=== PATIENT | male | born 1995 | race Caucasian/White ===

== ENCOUNTER → 2020-09-15 08:28 | Outpatient (BNVA) | payer OTHER, SELFPAY | PROVIDERS: Family Provider Family Medicine; Visit Provider Psychiatry & Neurology Psychiatry | DX: F41.9 Anxiety disorder, unspecified (principal) | CPT/HCPCS: 99204 ==

== ENCOUNTER 2022-08-30 10:46 | Outpatient (CLI) | payer OTHER, SELFPAY ==
--- NOTE | 2022-08-30 10:56 | MR_ITS ---
WS: [id number] MRI RIGHT KNEE NONCONTRAST TECHNIQUE: Axial PD, coronal PD fat sat, coronal PD, sagittal PD, and sagittal PD fat-sat images obta ined. CLINICAL INFORMATION: ACUTE MEDIAL MENISCUS TEAR COMPARISON: None. FINDINGS: Distal quadriceps and patella tendons are intact. Normal ACL and PCL. Normal medial and lateral menis cus. No acute appearing meniscal tears. Mild chondromalacia patella. Medial and lateral patellar reti nacula appear intact. No evidence of recent dislocation. Small amount of edema along the inferolatera l pole of the patella may be due to contusion. Recommend correlation with recent injury and area of p ain. Chondromalacia worse along lateral patella facet. Normal medial and lateral collateral ligaments. Normal popliteus. Normal popliteal fossa. MR/MR knee RT wo con* [id number] IMPRESSION: 1. Normal ACL and PCL. 2. Medial and lateral meniscus appear intact. 3. Mild chondromalacia patella advanced for patient this age. Small amount of edema along the inferior pole of the patella laterally. Patellar retinaculum ap pears intact. 4. Medial and lateral collateral ligaments appear intact. 5. No other acute findings.
== END 2022-08-30 10:47 | disposition home or self-care (01) ==
LOC: RAD 10:49
PROVIDERS: Visit Provider Orthopaedic Surgery
DX: S83.241A Other tear of medial meniscus, current injury, right knee, initial encounter (principal); X58.XXXA Exposure to other specified factors, initial encounter; M22.41 Chondromalacia patellae, right knee
CPT/HCPCS: 73721

== ENCOUNTER 2025-01-15 13:34 | Emergency (ER) | payer BC, MEDICAID, SELFPAY ==
[2025-01-15 13:35] VITALS: BMI 25.0
--- OUTSIDE RECORDS SUMMARY | 2025-01-15 13:39 | XMS_ITS | Encounter Summary ---
Author Organization [facility] Address [address] [place] [address] Care Team Providers Care Overedger Name Role Phone Roman Hernandez MD Primary Care Provider Un available Encounter Details Date Type Department Care Team (Late st Contact Info) Description 03/14/2014 Ancillary Orders [facility] Services [place] [address] [place] [address] Matthias Mooney MD [address] [facility] [address] [place] [address] Social History Tobacco Use Types Packs/Day Years Used Date Smoking Tobacco: Never Smokeless Tobacco: Never Alcohol Use Standard Drinks/Week Comments No 0 (1 standard drink = 0.6 oz pur e alcohol) Sex and Gender Information Value Date Recorded Sex Assigned at Not on file Legal Sex Male 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
--- OUTSIDE RECORDS SUMMARY | 2025-01-15 13:39 | XMS_ITS | Encounter Summary ---
Author Organization [facility] Address [address] [place] [address] Care Team Providers Care Marketing And Promotions Manager Name Role Phone Roman Hernandez MD Primary Care Provider Un available Encounter Details Date Type Department Care Team (Late st Contact Info) Description 03/14/2014 Ancillary Orders [facility] Laboratory Services [place] [address] [place] [address] Matthias Mooney MD [address] [facility] [address] [place] [address] Social History Tobacco Use Types Packs/Day Years Used Date Smoking Tobacco: Never Smokeless Tobacco: Never Alcohol Use Standard Drinks/Week Comments No 0 (1 standard drink = 0.6 oz pur e alcohol) Sex and Gender Information Value Date Recorded Sex Assigned at Not on file 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
--- OUTSIDE RECORDS SUMMARY | 2025-01-15 13:39 | XMS_ITS | Encounter Summary ---
Author Organization [facility] Address [address] [place] [address] Care Team Providers Care Manager Travel Name Role Phone Roman Hernandez MD Primary Care Provider Un available Encounter Details Date Type Department Care Team (Late st Contact Info) Description 03/14/2014 Ancillary Orders [facility] Laboratory Services [place] [address] [place] [address] Matthias Mooney MD [address] [facility] [address] [place] [address] Social History Tobacco Use Types Packs/Day Years Used Date Smoking Tobacco: Never Smokeless Tobacco: Never Alcohol Use Standard Drinks/Week Comments No 0 (1 standard drink = 0.6 oz pur e alcohol) Sex and Gender Information Value Date Recorded Sex Assigned at Not on file 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
--- OUTSIDE RECORDS SUMMARY | 2025-01-15 13:40 | XMS_ITS | Encounter Summary ---
Author Organization [facility] Address [address] [place] [address] Care Team Providers Care Traveling Missionary Name Role Phone Roman Hernandez MD Primary Care Provider Un available Encounter Details Date Type Department Care Team (Late st Contact Info) Description 04/11/2014 Ancillary Orders [facility] Laboratory Services [place] [address] [place] [address] Matthias Mooney MD [address] [facility] [address] [place] [address] Social History Tobacco Use Types Packs/Day Years Used Date Smoking Tobacco: Never Smokeless Tobacco: Never Alcohol Use Standard Drinks/Week Comments No 0 (1 standard drink = 0.6 oz pur e alcohol) Sex and Gender Information Value Date Recorded Sex Assigned at Not on file 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
--- OUTSIDE RECORDS SUMMARY | 2025-01-15 13:40 | XMS_ITS | Encounter Summary ---
Author Organization [facility] Address [address] [place] [address] Care Team Providers Care Scheduling Specialist Name Role Phone Roman Hernandez MD Primary Care Provider Un available Encounter Details Date Type Department Care Team (Latest Contact Info) Description 08/03/2003 Outpatient Historical [facility] [address] [place] [address] Roman Hernandez MD NO ADDRESS ON FILE ACUTE PHARYNGITIS (Primary Dx); BACKACHE NOS Social History Tobacco Use Types Packs/Day Years Used Date Smoking Tobacco: Never Assessed Sex and Gender Information Value Date Recorded Sex Assigned at Not on file 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
--- OUTSIDE RECORDS SUMMARY | 2025-01-15 13:40 | XMS_ITS | Encounter Summary ---
Author Organization [facility] Address [address] [place] [address] Care Team Providers Care Electrician Technician Name Role Phone Roman Hernandez MD Primary Care Provider Un available Encounter Details Date Type Department Care Team (Latest Contact Info) Description 12/19/2003 Outpatient Historical [facility] [address] [place] [phone] Roman Hernandez MD NO ADDRESS ON FILE Routine child health exam (Primary Dx) Social History Tobacco Use Types Packs/Day Years Used Date Smoking Tobacco: Never Assessed Sex and Gender Information Value Date Recorded Sex Assigned at Not on file 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
--- OUTSIDE RECORDS SUMMARY | 2025-01-15 13:40 | XMS_ITS | Encounter Summary ---
Author Organization [facility] Address [address] [place] [address] Care Team Providers Care Modeling Analyst Name Role Phone Roman Hernandez MD Primary Care Provider Un available Encounter Details Date Type Department Care Team (Latest Contact Info) Description 12/29/2001 Outpatient Historical [facility] [address] [place] [phone] Roman Hernadnez MD NO ADDRESS ON FILE Routine child health exam (Primary Dx) Social History Tobacco Use Types Packs/Day Years Used Date Smoking Tobacco: Never Assessed Sex and Gender Information Value Date Recorded Sex Assigned at Not on file 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
--- OUTSIDE RECORDS SUMMARY | 2025-01-15 13:40 | XMS_ITS | Encounter Summary ---
Author Organization [facility] Address [address] [place] [address] Care Team Providers Care Group Home Counselor Name Role Phone Roman Hernandez MD Primary Care Provider Un available Encounter Details Date Type Department Care Team (Latest Contact Info) Description 02/06/1998 Outpatient Historical [facility] [place] [address] [place] [phone] Roman Hernandez MD NO ADDRESS ON FILE Vaccine for varicella (Primary Dx); Vaccine for poliomyelitis Social History Tobacco Use Types Packs/Day Years Used Date Smoking Tobacco: Never Assessed Sex and Gender Information Value Date Recorded Sex Assigned at Not on file 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
--- OUTSIDE RECORDS SUMMARY | 2025-01-15 13:40 | XMS_ITS | Encounter Summary ---
Author Organization [facility] Address [address] [place] [address] Care Team Providers Care Railroad Detective Name Role Phone Roman Hernandez MD Primary Care Provider Un available Encounter Details Date Type Department Care Team (Latest Contact Info) Description 08/20/2003 Outpatient Historical [facility] [place] [address] [place] [phone] Shamir Hair MD NO ADDRESS ON FILE STREP SORE THROAT (Primary Dx) Social History Tobacco Use Types Packs/Day Years Used Date Smoking Tobacco: Never Assessed Sex and Gender Information Value Date Recorded Sex Assigned at Not on file 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
--- OUTSIDE RECORDS SUMMARY | 2025-01-15 13:40 | XMS_ITS | Clinical Summary ---
Author Organization [facility] Address [address] 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 Active Active Problems Problem Noted Date Diagnosed Date History of concussion 01/25/2015 FH: hypercholesterolemia 10/25/2014 Septic arthritis of knee, left 03/06/2014 S/P ACL surgery 03/02/2014 Overview (03/06/2014): Left knee Bone - patellar tendon - bone autograft on 02/10/2014 by Dimas Personal history of allergy to penicillin 2007 Immunizations Immunization Administration Dates Next Due (ADACEL/BOOSTRIX)(10 YR UP) TDAP VACCINE, 0.5ML, IM 12/18/2009 (GARDASIL)(9-45 YRS) HUMAN PAPILLOMAVIRUS VACCINE, TYPES 6, 11, 16, 18, QUADRIVALENT (4VHPV), 3 DOSE, IM 04/14/2012,11/08/2011,06/18/2011 (HAVRIX/VAQTA)(12 MO-18 YRS) HEPATITIS A VACCINE 0.5 ML PED/ADOL 2 DOSE, IM 12/18/2009,01/10/2009 (M-M-R II/PRIORIX)(12 MO UP) MEASLES, MUMPS AND RUBELLA VIRUS VACCINE, 0.5 ML IM/SUBCUT 12/29/2001,05/11/1998,05/05/1998 (VARIVAX)(12 MOS UP)VARICELL A VIRUS VACCINE (PF) 0.5 ML, SUB CUT 12/12/2006,02/06/1998 Dt Dtp Dtap Vaccine 12/29/2001, 8,1997,06/10,1997 HIB, Unspecified Formulation 05/11/1998, 1997,1997,04/12 Hepatitis B Vaccine 1997,1997,1996 INFLUENZA VACCINE QUADRIVALE NT 3 YR UP PF IM 03/07/2015,04/28/2014 IPV/OPV 12/29/2001, 8,1997,04/12 Influenza Seasonal Unspecifi ed Formulation IM 03/25/2008,03/25/2007,03/25/2006,03/07 Meningococcal A Conjugate Vaccine IM 12/18/2009 Family History Medical History Relation Name Comments High Cholesterol Father Hypertension Father Healthy Mother Relation Name Status Comments Father Alive Mother Alive Social History Tobacco Use Types Packs/Day Years Used Date Smoking Tobacco: Never Smokeless Tobacco: Never Alcohol Use Standard Drinks/Week Comments No 0 (1 standard drink = 0.6 oz pur e alcohol) Sex and Gender Information Value Date Recorded Sex Assigned at Not on file 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 Gender Identity Not on file Sexual Orientation Not on file Occupation Industry Job Start Date Job End Date Not on file Not on file Not on file Not on file Not on file Not on file Not on file Not on file Last Filed Vital Signs Vital Sign Reading Time Taken Comments Blood Pressure 125/75 03/07/2015 1:28 PM CDT Pulse 68 03/07/2015 1:28 PM CDT Temperature 36.6 C (97.9 F) 01/25/2015 9:13 AM CDT Respiratory Rate 15 03/07/2015 1:28 PM CDT Oxygen Saturation 100% 01/25/2015 9:13 AM CDT Inhaled Oxygen Concentration - - Weight 79.6 kg (175 lb 8 oz) 03/07/2015 1:28 PM CDT Height 165.1 cm (5' 5 ) 03/07/2015 1:28 PM CDT Body Mass Index 29.2 03/07/2015 1:28 PM CDT Plan of Treatment Health Maintenance Due Date Last Done Comments DTAP/TDAP/TD VACCINES (7 - T d or Tdap) 12/19/2019 12/18/2009, 12/29/2001, 05/05/1998, Additional history exists INFLUENZA VACCINE (#1) 2024 , 04/28/2014, 03/25/2008, Additional history exists HEPATITIS B VACCINES Completed 1997, 1997, 1997 HPV VACCINES Completed 04/14/2012, 10/24, 06/18/2011 Medical Devices Implanted Type Area Nailing Machine Operator Device Identifier Shelf Expiration Date Model / Serial / Lot Screw Biocomp Intrfrnc 7x23mm Ar-1370c - [id number] Implanted:Qty: 1 on 02/10/2014 by Dewayne Cochran MD at [facility] Screw Left: Knee [employer] 11/23/2015 AR-1370C / / [id number] Screw Biocomp Intrfrnc 8x23mm Ar-1380c - [id number] Implanted:Qty: 1 on 02/10/2014 by Dewayne Cochran MD at [facility] Screw Left: Knee [employer] 11/23/2015 AR-1380C / / [id number] [place] [address] [place] [address] [facility] Advance Directives For more information, please contact: [phone] * Full Code (Latest Code Status on File) Date Activated Date Inactivated Comments 03/11/2014 12:20 PM 03/12/2014 6:42 PM * Full Code Date Activated Date Inactivated Comments 03/06/2014 1:01 PM 03/08/2014 6:03 PM * Full Code Date Activated Date Inactivated Comments 02/10/2014 11:23 AM 02/10/2014 6:49 PM Care Teams Airplane Tester Relationship Specialty Start Date End Date Roman Hernandez MD PCP - General 06/14/07
--- OUTSIDE RECORDS SUMMARY | 2025-01-15 13:40 | XMS_ITS | Encounter Summary ---
Author Organization [facility] Address [address] [place] [address] Care Team Providers Care Weekend Anchor Name Role Phone Roman Hernandez MD Primary Care Provider Un available Encounter Details Date Type Department Care Team (Latest Contact Info) Description 03/22/2004 Outpatient Historical [facility] 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
--- OUTSIDE RECORDS SUMMARY | 2025-01-15 13:40 | XMS_ITS | Encounter Summary ---
Author Organization [facility] Address [address] [place] [address] Care Team Providers Care Cpht Name Role Phone Roman Hernandez MD Primary Care Provider Un available Encounter Details Date Type Department Care Team (Latest Contact Info) Description 1997 Outpatient Historical [facility] [address] [place] [phone] Roman Hernandez MD NO ADDRESS ON FILE Other and unspecified noninfectious gastroenteritis and colitis(558.9) (Primary Dx); Unspecified suppurative otitis media Social History Tobacco Use Types Packs/Day Years Used Date Smoking Tobacco: Never Assessed Sex and Gender Information Value Date Recorded Sex Assigned at Not on file Legal Sex Male 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
--- OUTSIDE RECORDS SUMMARY | 2025-01-15 13:40 | XMS_ITS | Encounter Summary ---
Author Organization [facility] Address [address] [place] [address] Care Team Providers Care Expense Clerk Name Role Phone Roman Hernandez MD Primary Care Provider Un available Encounter Details Date Type Department Care Team (Latest Contact Info) Description 06/30/2000 Outpatient Historical [facility] Ophthalmology 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
--- OUTSIDE RECORDS SUMMARY | 2025-01-15 13:40 | XMS_ITS | Encounter Summary ---
Author Organization [facility] Address [address] [place] [address] Care Team Providers Care Publishing Director Name Role Phone Roman Hernandez MD Primary Care Provider Un available Encounter Details Date Type Department Care Team (Latest Contact Info) Description 07/17/2003 Outpatient Historical [facility] [place] [address] STREP SORE THROAT (Primary Dx) Social History Tobacco Use Types Packs/Day Years Used Date Smoking Tobacco: Never Assessed Sex and Gender Information Value Date Recorded Sex Assigned at Not on file Legal 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
--- OUTSIDE RECORDS SUMMARY | 2025-01-15 13:40 | XMS_ITS | Encounter Summary ---
Author Organization [facility] Address [address] [place] [address] Care Team Providers Care Inhalation Therapist Name Role Phone Roman Hernandez MD Primary Care Provider Un available Encounter Details Date Type Department Care Team (Latest Contact Info) Description 10/25/2004 Outpatient Historical [facility] Ophthalmology [address] [place] 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
--- OUTSIDE RECORDS SUMMARY | 2025-01-15 13:40 | XMS_ITS | Encounter Summary ---
Author Organization [facility] Address [address] [place] [address] Care Team Providers Care Pond Sawyer Name Role Phone Roman Hernandez MD Primary Care Provider Un available Encounter Details Date Type Department Care Team (Latest Contact Info) Description 08/24/1999 Outpatient Historical [facility] [address] [place] [phone] Roman Hernandez MD NO ADDRESS ON FILE Unspecified suppurative otitis media (Primary Dx); Acute pharyngitis Social History Tobacco Use Types Packs/Day Years Used Date Smoking Tobacco: Never Assessed Sex and Gender Information Value Date Recorded Sex Assigned at Not on file 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
--- OUTSIDE RECORDS SUMMARY | 2025-01-15 13:40 | XMS_ITS | Encounter Summary ---
Author Organization [facility] Address [address] [place] [address] Care Team Providers Care Chemistry Lab Instructor Name Role Phone Roman Hernandez MD Primary Care Provider Un available Encounter Details Date Type Department Care Team (Late st Contact Info) Description 04/04/2014 Ancillary Orders [facility] Laboratory Services [place] [address] [place] [address] Matthias Mooney MD [address] [facility] [address] [place] [address] Social History Tobacco Use Types Packs/Day Years Used Date Smoking Tobacco: Never Smokeless Tobacco: Never Alcohol Use Standard Drinks/Week Comments No 0 (1 standard drink = 0.6 oz pur e alcohol) Sex and Gender Information Value Date Recorded Sex Assigned at Not on file 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
--- OUTSIDE RECORDS SUMMARY | 2025-01-15 13:40 | XMS_ITS | Encounter Summary ---
Author Organization [facility] Address [address] [place] [address] Care Team Providers Care Supervisor Hot Dip Tinning Name Role Phone Roman Hernandez MD Primary Care Provider Un available Encounter Details Date Type Department Care Team (Late st Contact Info) Description 03/28/2014 Ancillary Orders [facility] Laboratory Services [place] [address] [place] [address] Matthias Mooney MD [address] [facility] [address] [place] [address] Social History Tobacco Use Types Packs/Day Years Used Date Smoking Tobacco: Never Smokeless Tobacco: Never Alcohol Use Standard Drinks/Week Comments No 0 (1 standard drink = 0.6 oz pur e alcohol) Sex and Gender Information Value Date Recorded Sex Assigned at Not on file 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
--- OUTSIDE RECORDS SUMMARY | 2025-01-15 13:40 | XMS_ITS | Clinical Summary ---
Author Organization [facility] Address [address] [facility] Attn: [place] [address] Care Team Providers Care Prototype Machinist Name Role Phone Unavailable Primary Care Provider Unavailabl e Allergies Active Allergy Reactions Criticality Noted Date Comments Hydromorphone (Bulk) Other (See Comments) 03/06 resp rate drops Penicillin G Hives High 05/21/2008 Sulfa (Sulfonamide Antibiotics) Hives High 07/15/2010 Active Problems Problem Noted Date Diagnosed Date History of concussion 01/25/2015 FH: hypercholesterolemia 10/25/2014 Septic arthritis of knee, left 03/06/2014 S/P ACL surgery 03/02/2014 Overview (09/21/2020): Left knee Bone - patellar tendon - [...] at Not on file 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 Gender Identity Not on file Sexual Orientation Not on file Last Filed Vital Signs Vital Sign Reading Time Taken Comments Blood Pressure 125/75 03/07/2015 1:28 PM CDT Pulse 68 03/07/2015 1:28 PM CDT Temperature 36.6 C (97.9 F) 01/25/2015 9:13 AM CDT Respiratory Rate 15 03/07/2015 1:28 PM CDT Oxygen Saturation - - Inhaled Oxygen Concentration - - Weight 79.6 [...] 10/24, 06/18/2011 Medical Devices Implanted Type Area Certified Medicine Aide Device Identifier Shelf Expiration Date Model / Serial / Lot Screw Biocomp Intrfrnc 7x23mm Ar-1370c - [id number] Implanted:Qty: 1 on 02/10/2014 by Dewayne Cochran MD Screw Left: Knee [employer] 11/23/2015 AR-1370C / / [id number] Screw Biocomp Intrfrnc 8x23mm Ar-1380c - [id number] Implanted:Qty: 1 on 02/10/2014 by Dewayne Cochran MD Screw Left: Knee [employer] 11/23/2015 AR-1380C / / [id number]
--- OUTSIDE RECORDS SUMMARY | 2025-01-15 13:40 | XMS_ITS | Encounter Summary ---
Author Organization [facility] Address [address] [place] [address] Care Team Providers Care Electrician Machine Shop Name Role Phone Roman Hernandez MD Primary Care Provider Un available Encounter Details Date Type Department Care Team (Late st Contact Info) Description 03/21/2014 Ancillary Orders [facility] Laboratory Services [place] [address] [place] [address] Matthias Mooney MD [address] [facility] [address] [place] [address] Social History Tobacco Use Types Packs/Day Years Used Date Smoking Tobacco: Never Smokeless Tobacco: Never Alcohol Use Standard Drinks/Week Comments No 0 (1 standard drink = 0.6 oz pur e alcohol) Sex and Gender Information Value Date Recorded Sex Assigned at Not on file 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
--- OUTSIDE RECORDS SUMMARY | 2025-01-15 13:40 | XMS_ITS | Encounter Summary ---
Author Organization [facility] Address [address] [place] [address] Care Team Providers Care Data Analysis Manager Name Role Phone Roman Hernandez MD Primary Care Provider Un available Encounter Details Date Type Department Care Team (Late st Contact Info) Description 03/21/2014 Ancillary Orders [facility] Laboratory Services [place] [address] [place] [address] Matthias Mooney MD [address] [facility] [address] [place] [address] Social History Tobacco Use Types Packs/Day Years Used Date Smoking Tobacco: Never Smokeless Tobacco: Never Alcohol Use Standard Drinks/Week Comments No 0 (1 standard drink = 0.6 oz pur e alcohol) Sex and Gender Information Value Date Recorded Sex Assigned at Not on file Legal Sex Male 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
--- OUTSIDE RECORDS SUMMARY | 2025-01-15 13:40 | XMS_ITS | Encounter Summary ---
Author Organization [facility] Address [address] [place] [address] Care Team Providers Care Audit Officer Name Role Phone Roman Hernandez MD Primary Care Provider Un available Encounter Details Date Type Department Care Team (Latest Contact Info) Description 05/29/2001 Outpatient Historical [facility] acks [address] [place] [phone] Roman Hernandez MD NO ADDRESS ON FILE ACUTE URI NOS (Primary Dx) Social History Tobacco Use Types Packs/Day Years Used Date Smoking Tobacco: Never Assessed Sex and Gender Information Value Date Recorded Sex Assigned at Not on file 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
--- OUTSIDE RECORDS SUMMARY | 2025-01-15 13:40 | XMS_ITS | Encounter Summary ---
Author Organization [facility] Address [address] [place] [address] Care Team Providers Care Spinner Concrete Pipe Name Role Phone Roman Hernandez MD Primary Care Provider Un available Encounter Details Date Type Department Care Team (Latest Contact Info) Description 10/12/2006 Outpatient Historical [facility] Ur[facility] Care-[facility] [place] [address] [place] [address] Renato Castro MD NO ADDRESS ON FILE Abdominal Pain, Unspecified Site (Primary Dx) Social History Tobacco Use Types Packs/Day Years Used Date Smoking Tobacco: Never Assessed Sex and Gender Information Value Date Recorded Sex Assigned at Not on file 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
--- OUTSIDE RECORDS SUMMARY | 2025-01-15 13:40 | XMS_ITS | Encounter Summary ---
Author Organization [facility] Address [address] [place] [address] Care Team Providers Care Technical Aide Name Role Phone Roman Hernandez MD Primary Care Provider Un available Encounter Details Date Type Department Care Team (Latest Contact Info) Description 05/05/1998 Outpatient Historical [facility] Family Medicine-[facility] [address] [place] [phone] Roman Hernandez MD NO ADDRESS ON FILE Routine child health exam (Primary Dx); Need for prophylactic vaccination and inoculation against other specified disease Social History Tobacco Use Types Packs/Day Years Used Date Smoking Tobacco: Never Assessed Sex and Gender Information Value Date Recorded Sex Assigned at Not on file Legal Sex Male 5:36 AM QUALITY ASSURANCE Gender Identity Not on file Sexual Orientation Not on file documented as of this encounter Plan of Treatment Not on file documented as of this encounter Visit Diagnoses Diagnosis Routine child health exam- Primary Routine or child health check Need for prophylactic vaccination and inoculation against other specified disease documented in this encounter Care Teams Technical Aide Relationship Specialty Start Date End Date Roman Hernandez MD PCP - General 06/14/07 documented as of this encounter
--- OUTSIDE RECORDS SUMMARY | 2025-01-15 13:40 | XMS_ITS | Encounter Summary ---
Author Organization [facility] Address [address] [place] [address] Care Team Providers Care Sulfuric Acid Plant Supervisor Name Role Phone Roman Hernandez MD Primary Care Provider Un available Encounter Details Date Type Department Care Team (Latest Contact Info) Description 01/14/1998 Outpatient Historical [facility] Ur[facility] Care-[facility] [place] [address] [place] [phone] Renato Castro MD NO ADDRESS ON FILE Acute nonsup otitis media (Primary Dx) Social History Tobacco Use Types Packs/Day Years Used Date Smoking Tobacco: Never Assessed Sex and Gender Information Value Date Recorded Sex Assigned at Not on file 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
--- OUTSIDE RECORDS SUMMARY | 2025-01-15 13:40 | XMS_ITS | Encounter Summary ---
Author Organization [facility] Address [address] [place] [address] Care Team Providers Care Bill Peddler Name Role Phone Roman Hernandez MD Primary Care Provider Un available Encounter Details Date Type Department Care Team (Late st Contact Info) Description 03/28/2014 Ancillary Orders [facility] Laboratory Services [place] [address] [place] [address] Matthias Mooney MD [address] [facility] [address] [place] [address] Social History Tobacco Use Types Packs/Day Years Used Date Smoking Tobacco: Never Smokeless Tobacco: Never Alcohol Use Standard Drinks/Week Comments No 0 (1 standard drink = 0.6 oz pur e alcohol) Sex and Gender Information Value Date Recorded Sex Assigned at Not on file Legal Sex Male 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
--- OUTSIDE RECORDS SUMMARY | 2025-01-15 13:40 | XMS_ITS | Encounter Summary ---
Author Organization [facility] Address [address] [place] [address] Care Team Providers Care Seat Covers Trimmer Name Role Phone Roman Hernandez MD Primary Care Provider Un available Encounter Details Date Type Department Care Team (Latest Contact Info) Description 09/02/2006 Outpatient Historical [facility] [address] [place] [phone] Roman Hernandez MD NO ADDRESS ON FILE Pain in Joint, Site Unspecified (Primary Dx) Social History Tobacco Use Types Packs/Day Years Used Date Smoking Tobacco: Never Assessed Sex and Gender Information Value Date Recorded Sex Assigned at Not on file Legal Sex Male 5:36 AM CAN CRIMPER Gender Identity Not on file Sexual Orientation Not on file documented as of this encounter Plan of Treatment Not on file documented as of this encounter Visit Diagnoses Diagnosis Pain in joint, site unspecified- Primary documented in this encounter Care Teams Seat Covers Trimmer Relationship Specialty Start Date End Date Roman Hernandez MD PCP - General 06/14/07 documented as of this encounter
--- OUTSIDE RECORDS SUMMARY | 2025-01-15 13:40 | XMS_ITS | Encounter Summary ---
Author Organization [facility] Address [address] [place] [address] Care Team Providers Care Diamond Grinder Name Role Phone Roman Hernandez MD Primary Care Provider Un available Encounter Details Date Type Department Care Team (Latest Contact Info) Description 02/20/1998 Outpatient Historical [facility] Family Medicine-[facility] [address] [place] [phone] Roman Hernandez MD NO ADDRESS ON FILE Unspecified suppurative otitis media (Primary Dx); Acute bronchiolitis due to other infectious organisms Social History Tobacco Use Types Packs/Day Years Used Date Smoking Tobacco: Never Assessed Sex and Gender Information Value Date Recorded Sex Assigned at Not on file Legal 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
--- OUTSIDE RECORDS SUMMARY | 2025-01-15 13:40 | XMS_ITS | Encounter Summary ---
Author Organization [facility] Address [address] [place] [address] Care Team Providers Care Embedded Case Manager Name Role Phone Roman Hernandez MD Primary Care Provider Un available Encounter Details Date Type Department Care Team (Latest Contact Info) Description 12/17/2006 Outpatient Historical 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
--- OUTSIDE RECORDS SUMMARY | 2025-01-15 13:40 | XMS_ITS | Encounter Summary ---
Author Organization [facility] Address [address] [place] [address] Care Team Providers Care Production Engineer Track Name Role Phone Roman Hernandez MD Primary Care Provider Un available Encounter Details Date Type Department Care Team (Latest Contact Info) Description 1997 Outpatient Historical [facility] Medicine-[facility] [address] [place] [phone] Roman Hernandez MD NO ADDRESS ON FILE Acute upper respiratory infections of unspecified site (Primary Dx) Social History Tobacco Use Types Packs/Day Years Used Date Smoking Tobacco: Never Assessed Sex and Gender Information Value Date Recorded Sex Assigned at Not on file Legal Sex Male 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
--- OUTSIDE RECORDS SUMMARY | 2025-01-15 13:40 | XMS_ITS | Encounter Summary ---
Author Organization [facility] Address [address] [place] [address] Care Team Providers Care Precision Dancer Name Role Phone Roman Hernandez MD Primary Care Provider Un available Encounter Details Date Type Department Care Team (Latest Contact Info) Description 09/14/2004 Outpatient Historical [facility] [address] [place] [phone] Roman Hernandez MD NO ADDRESS ON FILE CONTUSION OF ELBOW (Primary Dx) Social History Tobacco Use Types Packs/Day Years Used Date Smoking Tobacco: Never Assessed Sex and Gender Information Value Date Recorded Sex Assigned at Not on file Legal Sex Male 5:36 AM REFINERY OPERATOR Gender Identity Not on file Sexual Orientation Not on file documented as of this encounter Plan of Treatment Not on file documented as of this encounter Visit Diagnoses Diagnosis Contusion of elbow- Primary documented in this encounter Care Teams Precision Dancer Relationship Specialty Start Date End Date Roman Hernandez MD PCP - General 06/14/07 documented as of this encounter
--- OUTSIDE RECORDS SUMMARY | 2025-01-15 13:40 | XMS_ITS | Encounter Summary ---
Author Organization [facility] Address [address] [place] [address] Care Team Providers Care Dough Molder Name Role Phone Roman Hernandez MD Primary Care Provider Un available Encounter Details Date Type Department Care Team (Latest Contact Info) Description 05/01/2000 Outpatient Historical [facility] [address] [place] [address] Heber Dickerson MD [address] [place] [address] Hypermetropia (Primary Dx) Social History Tobacco Use Types Packs/Day Years Used Date Smoking Tobacco: Never Assessed Sex and Gender Information Value Date Recorded Sex Assigned at Not on file Legal Sex Male 5:36 AM SERVICE ORDER CLERK Gender Identity Not on file Sexual Orientation Not on file documented as of this encounter Plan of Treatment Not on file documented as of this encounter Visit Diagnoses Diagnosis Hypermetropia- Primary documented in this encounter Care Teams Dough Molder Relationship Specialty Start Date End Date Roman Hernandez MD PCP - General 06/14/07 documented as of this encounter
--- OUTSIDE RECORDS SUMMARY | 2025-01-15 13:40 | XMS_ITS | Encounter Summary ---
Author Organization [facility] Address [address] [place] [address] Care Team Providers Care Communication Coordinator Name Role Phone Roman Hernandez MD Primary Care Provider Un available Encounter Details Date Type Department Care Team (Latest Contact Info) Description 08/10/1999 Outpatient Historical 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
--- OUTSIDE RECORDS SUMMARY | 2025-01-15 13:40 | XMS_ITS | Encounter Summary ---
Author Organization [facility] Address [address] [place] [address] Care Team Providers Care Car Changer Name Role Phone Roman Hernandez MD Primary Care Provider Un available Encounter Details Date Type Department Care Team (Late st Contact Info) Description 04/11/2014 Ancillary Orders [facility] Laboratory Services [place] [address] [place] [address] Matthias Mooney MD [address] [facility] [address] [place] [address] Social History Tobacco Use Types Packs/Day Years Used Date Smoking Tobacco: Never Smokeless Tobacco: Never Alcohol Use Standard Drinks/Week Comments No 0 (1 standard drink = 0.6 oz pur e alcohol) Sex and Gender Information Value Date Recorded Sex Assigned at Not on file Legal Sex Male 5:36 AM CONE TENDER Gender Identity Not on file Sexual Orientation [...] on filedocumented in this encounter Care Teams Car Changer Relationship Specialty Start Date End Date Roman Hernandez MD PCP - General 06/14/07 documented as of this encounter
--- OUTSIDE RECORDS SUMMARY | 2025-01-15 13:40 | XMS_ITS | Encounter Summary ---
Author Organization [facility] Address [address] [place] [address] Care Team Providers Care Painter Name Role Phone Roman Hernandez MD Primary Care Provider Un available Encounter Details Date Type Department Care Team (Latest Contact Info) Description 1997 Outpatient Historical [facility] [place] [address] [place] [phone] Roman Hernandez MD NO ADDRESS ON FILE Need for prophylactic vaccination with combined nghbjcbqje-tnotvjr-by rtussis (DTP) vaccine (Primary Dx); Need for prophylactic vaccination against Hemophilus influenza type B (Hib); Vaccine for leishmaniasis Social History Tobacco Use Types Packs/Day Years Used Date Smoking Tobacco: Never Assessed Sex and Gender Information Value Date Recorded Sex Assigned at Not on file Legal Sex Male 5:36 AM REFINERY OPERATOR HELPER CRUDE UNIT Gender Identity Not on file Sexual Orientation Not on file documented as of this encounter Plan of Treatment Not on file documented as of this encounter Visit Diagnoses Diagnosis Need for prophylactic vaccination with combined [id number] (DTP) vaccine- Primary Need for prophylactic vaccination against Hemophilus influenza type B (Hib) Vaccine for leishmaniasis Need for prophylactic vaccination and inoculation against Leishmaniasis documented in this encounter Care Teams Painter Relationship Specialty Start Date End Date Roman Hernandez MD PCP - General 06/14/07 documented as of this encounter
--- OUTSIDE RECORDS SUMMARY | 2025-01-15 13:40 | XMS_ITS | Encounter Summary ---
Author Organization [facility] Address [address] [place] [address] Care Team Providers Care Factory Maintenance Manager Name Role Phone Roman Hernandez MD Primary Care Provider Un available Encounter Details Date Type Department Care Team (Latest Contact Info) Description 06/30/1998 Outpatient Historical [facility] Medicine-[facility] [address] [place] [phone] Roman Hernandez MD NO ADDRESS ON FILE Intracranial injury of other and unspecified nature, without mention of open intracranial wound, unspecified state of consciousness (Primary Dx) Social History Tobacco Use Types Packs/Day Years Used Date Smoking Tobacco: Never Assessed Sex and Gender Information Value Date Recorded Sex Assigned at Not on file Legal Sex Male 5:36 AM CHIEF INTERNAL AUDITOR Gender Identity Not on file Sexual Orientation Not on file documented as of this encounter Plan of Treatment Not on file documented as of this encounter Visit Diagnoses Diagnosis Intracranial injury of other and unspecified nature, without mention of open intracranial wound, unspecified state of consciousness- Primary documented in this encounter Care Teams Factory Maintenance Manager Relationship Specialty Start Date End Date Roman Hernandez MD PCP - General 06/14/07 documented as of this encounter
--- OUTSIDE RECORDS SUMMARY | 2025-01-15 13:40 | XMS_ITS | Encounter Summary ---
Author Organization [facility] Address [address] [place] [address] Care Team Providers Care Legal Aide Name Role Phone Roman Hernandez MD Primary Care Provider Un available Encounter Details Date Type Department Care Team (Latest Contact Info) Description 1999 Outpatient Historical [facility] [address] [place] [phone] Roman Hernandez MD NO ADDRESS ON FILE Routine child health exam (Primary Dx) Social History Tobacco Use Types Packs/Day Years Used Date Smoking Tobacco: Never Assessed Sex and Gender Information Value Date Recorded Sex Assigned at Not on file Legal Sex Male 5:36 AM SERVICER TRAVEL TRAILERS Gender Identity Not on file Sexual Orientation Not on file documented as of this encounter Plan of Treatment Not on file documented as of this encounter Visit Diagnoses Diagnosis Routine child health exam- Primary Routine infant or child health check documented in this encounter Care Teams Legal Aide Relationship Specialty Start Date End Date Roman Hernandez MD PCP - General 06/14/07 documented as of this encounter
--- OUTSIDE RECORDS SUMMARY | 2025-01-15 13:40 | XMS_ITS | Encounter Summary ---
Author Organization [facility] Address [address] [place] [address] Care Team Providers Care Service Order Dispatcher Name Role Phone Roman Hernandez MD Primary Care Provider Un available Encounter Details Date Type Department Care Team (Latest Contact Info) Description 07/03/1998 Outpatient Historical [facility] Family Medicine-[facility] [address] [place] [phone] Pro Kathleen MD NO ADDRESS ON FILE Unspecified suppurative otitis media (Primary Dx) Social History Tobacco Use Types Packs/Day Years Used Date Smoking Tobacco: Never Assessed Sex and Gender Information Value Date Recorded Sex Assigned at Not on file Legal Sex Male 5:36 AM LOCKSTITCH LINING SETTER Gender Identity Not on file Sexual Orientation Not on file documented as of this encounter Plan of Treatment Not on file documented as of this encounter Visit Diagnoses Diagnosis Unspecified suppurative otitis media- Primary documented in this encounter Care Teams Service Order Dispatcher Relationship Specialty Start Date End Date Roman Hernandez MD PCP - General 06/14/07 documented as of this encounter
--- OUTSIDE RECORDS SUMMARY | 2025-01-15 13:40 | XMS_ITS | Encounter Summary ---
Author Organization [facility] Address [address] [place] [address] Care Team Providers Care Industrial Illuminating Engineer Name Role Phone Roman Hernandez MD Primary Care Provider Un available Encounter Details Date Type Department Care Team (Latest Contact Info) Description 12/13/2005 Outpatient Historical [facility] [address] [place] [phone] Roman Hernandez MD NO ADDRESS ON FILE Unspecified Backache (Primary Dx); Unspecified Otalgia Social History Tobacco Use Types Packs/Day Years Used Date Smoking Tobacco: Never Assessed Sex and Gender Information Value Date Recorded Sex Assigned at Not on file Legal Sex Male 5:36 AM POWER 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
--- OUTSIDE RECORDS SUMMARY | 2025-01-15 13:40 | XMS_ITS | Encounter Summary ---
Author Organization [facility] Address [address] [place] [address] Care Team Providers Care Diesel Powerplant Mechanic Helper Name Role Phone Roman Hernandez MD Primary Care Provider Un available Encounter Details Date Type Department Care Team (Late st Contact Info) Description 03/28/2014 Ancillary Orders [facility] Laboratory Services [place] [address] [place] [address] Matthias Mooney MD [address] [facility] [address] [place] [address] Social History Tobacco Use Types Packs/Day Years Used Date Smoking Tobacco: Never Smokeless Tobacco: Never Alcohol Use Standard Drinks/Week Comments No 0 (1 standard drink = 0.6 oz pur e alcohol) Sex and Gender Information Value Date Recorded Sex Assigned at Not on file Legal Sex Male 5:36 AM CURRENCY EXCHANGE SPECIALIST Gender Identity Not on file Sexual [...] on filedocumented in this encounter Care Teams Diesel Powerplant Mechanic Helper Relationship Specialty Start Date End Date Roman Hernandez MD PCP - General 06/14/07 documented as of this encounter
--- OUTSIDE RECORDS SUMMARY | 2025-01-15 13:40 | XMS_ITS | Encounter Summary ---
Author Organization [facility] Address [address] [place] [address] Care Team Providers Care Betting Agency Counter Clerk Name Role Phone Roman Hernandez MD Primary Care Provider Un available Encounter Details Date Type Department Care Team (Late st Contact Info) Description 04/11/2014 Ancillary Orders [facility] Laboratory Services [place] [address] [place] [address] Matthias Mooney MD [address] [facility] [address] [place] [address] Social History Tobacco Use Types Packs/Day Years Used Date Smoking Tobacco: Never Smokeless Tobacco: Never Alcohol Use Standard Drinks/Week Comments No 0 (1 standard drink = 0.6 oz pur e alcohol) Sex and Gender Information Value Date Recorded Sex Assigned at Not on file Legal Sex Male 5:36 AM ENVIRONMENTAL ADVISER Gender Identity Not on file Sexual Orientation [...] on filedocumented in this encounter Care Teams Betting Agency Counter Clerk Relationship Specialty Start Date End Date Roman Hernandez MD PCP - General 06/14/07 documented as of this encounter
--- OUTSIDE RECORDS SUMMARY | 2025-01-15 13:40 | XMS_ITS | Encounter Summary ---
Author Organization [facility] Address [address] [place] [address] Care Team Providers Care Wood Repatcher Name Role Phone Roman Hernandez MD Primary Care Provider Un available Encounter Details Date Type Department Care Team (Late st Contact Info) Description 04/18/2014 Ancillary Orders [facility] Laboratory Services [place] [address] [place] [address] Matthias Mooney MD [address] [facility] [address] [place] [address] Social History Tobacco Use Types Packs/Day Years Used Date Smoking Tobacco: Never Smokeless Tobacco: Never Alcohol Use Standard Drinks/Week Comments No 0 (1 standard drink = 0.6 oz pur e alcohol) Sex and Gender Information Value Date Recorded Sex Assigned at Not on file Legal Sex Male 5:36 AM DISC INSPECTOR Gender Identity Not on file Sexual Orientation [...] on filedocumented in this encounter Care Teams Wood Repatcher Relationship Specialty Start Date End Date Roman Hernandez MD PCP - General 06/14/07 documented as of this encounter
--- OUTSIDE RECORDS SUMMARY | 2025-01-15 13:40 | XMS_ITS | Encounter Summary ---
Author Organization [facility] Address [address] [place] [address] Care Team Providers Care Energy Specialist Name Role Phone Roman Hernandez MD Primary Care Provider Un available Encounter Details Date Type Department Care Team (Latest Contact Info) Description 03/03/2000 Outpatient Historical [facility] [address] [place] [phone] Roman Hernandez MD NO ADDRESS ON FILE Routine child health exam (Primary Dx) Social History Tobacco Use Types Packs/Day Years Used Date Smoking Tobacco: Never Assessed Sex and Gender Information Value Date Recorded Sex Assigned at Not on file Legal Sex Male 5:36 AM IT INTEGRATION ARCHITECT Gender Identity Not on file Sexual Orientation Not on file documented as of this encounter Plan of Treatment Not on file documented as of this encounter Visit Diagnoses Diagnosis Routine child health exam- Primary Routine infant or child health check documented in this encounter Care Teams Energy Specialist Relationship Specialty Start Date End Date Roman Hernandez MD PCP - General 06/14/07 documented as of this encounter
--- OUTSIDE RECORDS SUMMARY | 2025-01-15 13:40 | XMS_ITS | Encounter Summary ---
Author Organization [facility] Address [address] [place] [address] Care Team Providers Care Mangle Feeder Name Role Phone Roman Hernandez MD Primary Care Provider Un available Encounter Details Date Type Department Care Team (Late st Contact Info) Description 04/18/2014 Ancillary Orders [facility] Laboratory Services [place] [address] [place] [address] Matthias Mooney MD [address] [facility] [address] [place] [address] Social History Tobacco Use Types Packs/Day Years Used Date Smoking Tobacco: Never Smokeless Tobacco: Never Alcohol Use Standard Drinks/Week Comments No 0 (1 standard drink = 0.6 oz pur e alcohol) Sex and Gender Information Value Date Recorded Sex Assigned at Not on file Legal Sex Male 5:36 AM ENGINEERING SECRETARY Gender Identity Not on file Sexual Orientation [...] on filedocumented in this encounter Care Teams Mangle Feeder Relationship Specialty Start Date End Date Roman Hernandez MD PCP - General 06/14/07 documented as of this encounter
--- OUTSIDE RECORDS SUMMARY | 2025-01-15 13:40 | XMS_ITS | Encounter Summary ---
Author Organization [facility] Address [address] [place] [address] Care Team Providers Care Bottle Washer Machine Name Role Phone Roman Hernandez MD Primary Care Provider Un available Encounter Details Date Type Department Care Team (Latest Contact Info) Description 06/01/2004 Outpatient Historical [facility] [address] [place] [phone] Roman Hernandez MD NO ADDRESS ON FILE ACUTE PHARYNGITIS (Primary Dx) Social History Tobacco Use Types Packs/Day Years Used Date Smoking Tobacco: Never Assessed Sex and Gender Information Value Date Recorded Sex Assigned at Not on file Legal Sex Male 5:36 AM ASSOCIATE ACCOUNTANT Gender Identity Not on file Sexual Orientation Not on file documented as of this encounter Plan of Treatment Not on file documented as of this encounter Visit Diagnoses Diagnosis Acute pharyngitis- Primary documented in this encounter Care Teams Bottle Washer Machine Relationship Specialty Start Date End Date Roman Hernandez MD PCP - General 06/14/07 documented as of this encounter
--- OUTSIDE RECORDS SUMMARY | 2025-01-15 13:40 | XMS_ITS | Encounter Summary ---
Author Organization [facility] Address [address] [place] [address] Care Team Providers Care Computer Terminal Operator Name Role Phone Roman Hernandez MD Primary Care Provider Un available Encounter Details Date Type Department Care Team (Latest Contact Info) Description 10/08/2002 Outpatient Historical [facility] [address] [place] [address] Andres Khan [address] [place] [address] ENLARGEMENT LYMPH NODES (Primary Dx) Social History Tobacco Use Types Packs/Day Years Used Date Smoking Tobacco: Never Assessed Sex and Gender Information Value Date Recorded Sex Assigned at Not on file Legal Sex Male 5:36 AM POLE SETTER Gender Identity Not on file Sexual Orientation Not on file documented as of this encounter Plan of Treatment Not on file documented as of this encounter Visit Diagnoses Diagnosis Enlargement of lymph nodes- Primary documented in this encounter Care Teams Computer Terminal Operator Relationship Specialty Start Date End Date Roman Hernandez MD PCP - General 06/14/07 documented as of this encounter
--- OUTSIDE RECORDS SUMMARY | 2025-01-15 13:40 | XMS_ITS | Encounter Summary ---
Author Organization [facility] Address [address] [place] [address] Care Team Providers Care Radio Program Checker Name Role Phone Roman Hernandez MD Primary Care Provider Un available Encounter Details Date Type Department Care Team (Latest Contact Info) Description 03/03/2002 Outpatient Historical [facility] Ophthalmology [address] [place] [address] [place] [address] Heber Dickerson MD [address] [place] [address] HYPERMETROPIA (Primary Dx) Social History Tobacco Use Types Packs/Day Years Used Date Smoking Tobacco: Never Assessed Sex and Gender Information Value Date Recorded Sex Assigned at Not on file Legal Sex Male 5:36 AM UI DEVELOPER Gender Identity Not on file Sexual Orientation Not on file documented as of this encounter Plan of Treatment Not on file documented as of this encounter Visit Diagnoses Diagnosis Hypermetropia- Primary documented in this encounter Care Teams Radio Program Checker Relationship Specialty Start Date End Date Roman Hernandez MD PCP - General 06/14/07 documented as of this encounter
--- OUTSIDE RECORDS SUMMARY | 2025-01-15 13:40 | XMS_ITS | Encounter Summary ---
Author Organization [facility] Address [address] [place] [address] Care Team Providers Care Stencil Machine Operator Name Role Phone Roman Hernandez MD Primary Care Provider Un available Encounter Details Date Type Department Care Team (Late st Contact Info) Description 03/21/2014 Ancillary Orders [facility] Laboratory Services [place] [address] [place] [address] Matthias Mooney MD [address] [facility] [address] [place] [address] Social History Tobacco Use Types Packs/Day Years Used Date Smoking Tobacco: Never Smokeless Tobacco: Never Alcohol Use Standard Drinks/Week Comments No 0 (1 standard drink = 0.6 oz pur e alcohol) Sex and Gender Information Value Date Recorded Sex Assigned at Not on file Legal Sex Male 5:36 AM PROPOSAL ANALYST Gender Identity Not on file Sexual [...] on filedocumented in this encounter Care Teams Stencil Machine Operator Relationship Specialty Start Date End Date Roman Hernandez MD PCP - General 06/14/07 documented as of this encounter
--- OUTSIDE RECORDS SUMMARY | 2025-01-15 13:40 | XMS_ITS | Encounter Summary ---
Author Organization [facility] Address [address] [place] [address] Care Team Providers Care Automotive Tire Worker Name Role Phone Roman Hernandez MD Primary Care Provider Un available Encounter Details Date Type Department Care Team (Latest Contact Info) Description 05/06/2001 Outpatient Historical [facility] Ophthalmology [address] [place] [address] [place] [address] Heber Dickerson MD [address] [place] [address] HYPERMETROPIA (Primary Dx) Social History Tobacco Use Types Packs/Day Years Used Date Smoking Tobacco: Never Assessed Sex and Gender Information Value Date Recorded Sex Assigned at Not on file Legal Sex Male 5:36 AM CANCER GENETIC COUNSELOR Gender Identity Not on file Sexual Orientation Not on file documented as of this encounter Plan of Treatment Not on file documented as of this encounter Visit Diagnoses Diagnosis Hypermetropia- Primary documented in this encounter Care Teams Automotive Tire Worker Relationship Specialty Start Date End Date Roman Hernandez MD PCP - General 06/14/07 documented as of this encounter
--- OUTSIDE RECORDS SUMMARY | 2025-01-15 13:40 | XMS_ITS | Encounter Summary ---
Author Organization [facility] Address [address] [place] [address] Care Team Providers Care Plant Culture Manager Name Role Phone Roman Hernandez MD Primary Care Provider Un available Encounter Details Date Type Department Care Team (Late st Contact Info) Description 04/04/2014 Ancillary Orders [facility] Laboratory Services [place] [address] [place] [address] Matthias Mooney MD [address] [facility] [address] [place] [address] Social History Tobacco Use Types Packs/Day Years Used Date Smoking Tobacco: Never Smokeless Tobacco: Never Alcohol Use Standard Drinks/Week Comments No 0 (1 standard drink = 0.6 oz pur e alcohol) Sex and Gender Information Value Date Recorded Sex Assigned at Not on file Legal Sex Male 5:36 AM STEAM POWER PLANT OPERATOR Gender Identity Not on file Sexual [...] on filedocumented in this encounter Care Teams Plant Culture Manager Relationship Specialty Start Date End Date Roman Hernandez MD PCP - General 06/14/07 documented as of this encounter
--- OUTSIDE RECORDS SUMMARY | 2025-01-15 13:40 | XMS_ITS | Encounter Summary ---
Author Organization [facility] Address [address] [place] [address] Care Team Providers Care Coo & Co Founder Name Role Phone Roman Hernandez MD Primary Care Provider Un available Encounter Details Date Type Department Care Team (Latest Contact Info) Description 04/02/2002 Outpatient Historical [facility] Imaging Services-[place] [address] [place] [phone] Roman Hernandez MD NO ADDRESS ON FILE COUGH (Primary Dx) Social History Tobacco Use Types Packs/Day Years Used Date Smoking Tobacco: Never Assessed Sex and Gender Information Value Date Recorded Sex Assigned at Not on file Legal Sex Male 5:36 AM PATTERN DUPLICATOR Gender Identity Not on file Sexual Orientation Not on file documented as of this encounter Plan of Treatment Not on file documented as of this encounter Visit Diagnoses Diagnosis Cough- Primary documented in this encounter Care Teams Coo & Co Founder Relationship Specialty Start Date End Date Roman Hernandez MD PCP - General 06/14/07 documented as of this encounter
--- OUTSIDE RECORDS SUMMARY | 2025-01-15 13:40 | XMS_ITS | Encounter Summary ---
Author Organization [facility] Address [address] [place] [address] Care Team Providers Care Flight/Transport Nurse Name Role Phone Roman Hernandez MD Primary Care Provider Un available Encounter Details Date Type Department Care Team (Latest Contact Info) Description 10/03/1998 Outpatient Historical [facility] Family Medicine-[facility] [address] [place] [phone] Roman Hernandez MD NO ADDRESS ON FILE Acute upper respiratory infections of unspecified site (Primary Dx) Social History Tobacco Use Types Packs/Day Years Used Date Smoking Tobacco: Never Assessed Sex and Gender Information Value Date Recorded Sex Assigned at Not on file Legal Sex Male 5:36 AM SOFTWARE TEAM LEADER Gender Identity Not on file Sexual Orientation Not on file documented as of this encounter Plan of Treatment Not on file documented as of this encounter Visit Diagnoses Diagnosis Acute upper respiratory infections of unspecified site- Primary documented in this encounter Care Teams Flight/Transport Nurse Relationship Specialty Start Date End Date Roman Hernandez MD PCP - General 06/14/07 documented as of this encounter
--- OUTSIDE RECORDS SUMMARY | 2025-01-15 13:40 | XMS_ITS | Encounter Summary ---
Author Organization [facility] Address [address] [place] [address] Care Team Providers Care Multigraph Operator Name Role Phone Roman Hernandez MD Primary Care Provider Un available Encounter Details Date Type Department Care Team (Latest Contact Info) Description 07/15/1999 Outpatient Historical [facility] [address] [place] [address] Renato Castro MD NO ADDRESS ON FILE Acute bronchitis (Primary Dx) Social History Tobacco Use Types Packs/Day Years Used Date Smoking Tobacco: Never Assessed Sex and Gender Information Value Date Recorded Sex Assigned at Not on file Legal Sex Male 5:36 AM MUSEUM EDUCATOR Gender Identity Not on file Sexual Orientation Not on file documented as of this encounter Plan of Treatment Not on file documented as of this encounter Visit Diagnoses Diagnosis Acute bronchitis- Primary documented in this encounter Care Teams Multigraph Operator Relationship Specialty Start Date End Date Roman Hernandez MD PCP - General 06/14/07 documented as of this encounter
--- OUTSIDE RECORDS SUMMARY | 2025-01-15 13:40 | XMS_ITS | Encounter Summary ---
Author Organization [facility] Address [address] [place] [address] Care Team Providers Care Scrap Collector Name Role Phone Roman Hernandez MD Primary Care Provider Un available Encounter Details Date Type Department Care Team (Latest Contact Info) Description 11/02/2002 Outpatient Historical [facility] [address] [place] [address] Roman Hernandez MD NO ADDRESS ON FILE ENLARGEMENT LYMPH NODES (Primary Dx); ACUTE PHARYNGITIS Social History Tobacco Use Types Packs/Day Years Used Date Smoking Tobacco: Never Assessed Sex and Gender Information Value Date Recorded Sex Assigned at Not on file Legal Sex Male 5:36 AM ACCOUNT GENERAL MANAGER Gender Identity Not on file Sexual Orientation Not on file documented as of this encounter Plan of Treatment Not on file documented as of this encounter Visit Diagnoses Diagnosis Enlargement of lymph nodes- Primary Acute pharyngitis documented in this encounter Care Teams Scrap Collector Relationship Specialty Start Date End Date Roman Hernandez MD PCP - General 06/14/07 documented as of this encounter
--- OUTSIDE RECORDS SUMMARY | 2025-01-15 13:40 | XMS_ITS | Encounter Summary ---
Author Organization [facility] Address [address] [place] [address] Care Team Providers Care Census Clerk Name Role Phone Roman Hernandez MD Primary Care Provider Un available Encounter Details Date Type Department Care Team (Latest Contact Info) Description 06/07/2002 Outpatient Historical [facility] [address] [place] [address] Roman Hernandez MD NO ADDRESS ON FILE ACUTE PHARYNGITIS (Primary Dx) Social History Tobacco Use Types Packs/Day Years Used Date Smoking Tobacco: Never Assessed Sex and Gender Information Value Date Recorded Sex Assigned at Not on file Legal Sex Male 5:36 AM CARBIDE GRINDER Gender Identity Not on file Sexual Orientation Not on file documented as of this encounter Plan of Treatment Not on file documented as of this encounter Visit Diagnoses Diagnosis Acute pharyngitis- Primary documented in this encounter Care Teams Census Clerk Relationship Specialty Start Date End Date Roman Hernandez MD PCP - General 06/14/07 documented as of this encounter
--- OUTSIDE RECORDS SUMMARY | 2025-01-15 13:40 | XMS_ITS | Encounter Summary ---
Author Organization [facility] Address [address] [place] [address] Care Team Providers Care Vice President [employer] Name Role Phone Roman Hernandez MD Primary Care Provider Un available Encounter Details Date Type Department Care Team (Latest Contact Info) Description 03/18/2003 Outpatient Historical [facility] [address] [place] [address] Heber Dickerson MD [address] [place] [address] HYPERMETROPIA (Primary Dx) Social History Tobacco Use Types Packs/Day Years Used Date Smoking Tobacco: Never Assessed Sex and Gender Information Value Date Recorded Sex Assigned at Not on file Legal Sex Male 5:36 AM PROFESSOR OF ANTHROPOLOGY Gender Identity Not on file Sexual Orientation Not on file documented as of this encounter Plan of Treatment Not on file documented as of this encounter Visit Diagnoses Diagnosis Hypermetropia- Primary documented in this encounter Care Teams Vice President [employer] Relationship Specialty Start Date End Date Roman Hernandez MD PCP - General 06/14/07 documented as of this encounter
--- OUTSIDE RECORDS SUMMARY | 2025-01-15 13:40 | XMS_ITS | Encounter Summary ---
Author Organization [facility] Address [address] [place] [address] Care Team Providers Care Child Care Associate Teacher Name Role Phone Roman Hernandez MD Primary Care Provider Un available Encounter Details Date Type Department Care Team (Latest Contact Info) Description 03/18/2003 Outpatient Historical [facility] [address] [place] [phone] Roman Hernandez MD NO ADDRESS ON FILE DERMATOPHYTOSIS OF BODY (Primary Dx) Social History Tobacco Use Types Packs/Day Years Used Date Smoking Tobacco: Never Assessed Sex and Gender Information Value Date Recorded Sex Assigned at Not on file Legal Sex Male 5:36 AM TELECOM BILLING ANALYST Gender Identity Not on file Sexual Orientation Not on file documented as of this encounter Plan of Treatment Not on file documented as of this encounter Visit Diagnoses Diagnosis Dermatophytosis of the body- Primary documented in this encounter Care Teams Child Care Associate Teacher Relationship Specialty Start Date End Date Roman Hernandez MD PCP - General 06/14/07 documented as of this encounter
--- OUTSIDE RECORDS SUMMARY | 2025-01-15 13:40 | XMS_ITS | Encounter Summary ---
Author Organization [facility] Address [address] [place] [address] Care Team Providers Care Starch And Prosize Mixer Name Role Phone Roman Hernandez MD Primary Care Provider Un available Encounter Details Date Type Department Care Team (Late st Contact Info) Description 04/04/2014 Ancillary Orders [facility] [place] [address] [place] [address] Matthias Mooney MD [address] [facility] [address] [place] [address] Social History Tobacco Use Types Packs/Day Years Used Date Smoking Tobacco: Never Smokeless Tobacco: Never Alcohol Use Standard Drinks/Week Comments No 0 (1 standard drink = 0.6 oz pur e alcohol) Sex and Gender Information Value Date Recorded Sex Assigned at Not on file Legal Sex Male 5:36 AM BOOKMOBILE DRIVER Gender Identity Not on file Sexual Orientation [...] on filedocumented in this encounter Care Teams Starch And Prosize Mixer Relationship Specialty Start Date End Date Roman Hernandez MD PCP - General 06/14/07 documented as of this encounter
--- OUTSIDE RECORDS SUMMARY | 2025-01-15 13:40 | XMS_ITS | Encounter Summary ---
Author Organization [facility] Address [address] [place] [address] Care Team Providers Care Dietary Internship Name Role Phone Roman Hernandez MD Primary Care Provider Un available Encounter Details Date Type Department Care Team (Latest Contact Info) Description 03/05/2006 Outpatient Historical [facility] [address] [place] [phone] Roman Hernandez MD NO ADDRESS ON FILE Pain in Joint, Site Unspecified (Primary Dx) Social History Tobacco Use Types Packs/Day Years Used Date Smoking Tobacco: Never Assessed Sex and Gender Information Value Date Recorded Sex Assigned at Not on file 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
--- OUTSIDE RECORDS SUMMARY | 2025-01-15 13:40 | XMS_ITS | Encounter Summary ---
Author Organization [facility] Address [address] [place] [address] Care Team Providers Care Director Of Epidemiology Name Role Phone Roman Hernandez MD Primary Care Provider Un available Encounter Details Date Type Department Care Team (Latest Contact Info) Description 04/02/2002 Outpatient Historical [facility] Roman Hernandez MD NO ADDRESS ON FILE BRONCOPNEUMONIA ORG NOS (Primary Dx) Social History Tobacco Use Types Packs/Day Years Used Date Smoking Tobacco: Never Assessed Sex and Gender Information Value Date Recorded Sex Assigned at Not on file 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
--- OUTSIDE RECORDS SUMMARY | 2025-01-15 13:40 | XMS_ITS | Encounter Summary ---
Author Organization [facility] Address [address] [place] [address] Care Team Providers Care Oracle Consultant Name Role Phone Roman Hernandez MD Primary Care Provider Un available Encounter Details Date Type Department Care Team (Late st Contact Info) Description 04/18/2014 Ancillary Orders [facility] [place] [address] [place] [address] Matthias Mooney MD [address] [facility] [address] [place] [address] Social History Tobacco Use Types Packs/Day Years Used Date Smoking Tobacco: Never Smokeless Tobacco: Never Alcohol Use Standard Drinks/Week Comments No 0 (1 standard drink = 0.6 oz pur e alcohol) Sex and Gender Information Value Date Recorded Sex Assigned at Not on file 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
--- OUTSIDE RECORDS SUMMARY | 2025-01-15 13:40 | XMS_ITS | Encounter Summary ---
Author Organization [facility] Address [address] [place] [address] Care Team Providers Care Building Repair Maintenance Supervisor Name Role Phone Roman Hernandez MD Primary Care Provider Un available Encounter Details Date Type Department Care Team (Latest Contact Info) Description 03/31/1998 Outpatient Historical [facility] [address] [place] [phone] Roman Hernandez MD NO ADDRESS ON FILE Acute upper respiratory infections of unspecified site (Primary Dx); Unspecified suppurative otitis media Social History Tobacco Use Types Packs/Day Years Used Date Smoking Tobacco: Never Assessed Sex and Gender Information Value Date Recorded Sex Assigned at Not on file 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
--- OUTSIDE RECORDS SUMMARY | 2025-01-15 13:40 | XMS_ITS | Encounter Summary ---
Author Organization [facility] Address [address] [place] [address] Care Team Providers Care Toolroom Clerk Name Role Phone Roman Hernandez MD Primary Care Provider Un available Encounter Details Date Type Department Care Team (Latest Contact Info) Description 04/24/1998 Outpatient Historical [facility] [address] [place] [phone] Roman Hernandez MD NO ADDRESS ON FILE Unspecified suppurative otitis media (Primary Dx) Social History Tobacco Use Types Packs/Day Years Used Date Smoking Tobacco: Never Assessed Sex and Gender Information Value Date Recorded Sex Assigned at Not on file 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
--- OUTSIDE RECORDS SUMMARY | 2025-01-15 13:40 | XMS_ITS | Encounter Summary ---
Author Organization [facility] Address [address] [place] [address] Care Team Providers Care Pharmacist Hospital Name Role Phone Roman Hernandez MD Primary Care Provider Un available Encounter Details Date Type Department Care Team (Latest Contact Info) Description 08/11/1998 Outpatient Historical [facility] [address] [place] [phone] Roman Hernandez MD NO ADDRESS ON FILE Routine child health exam (Primary Dx) Social History Tobacco Use Types Packs/Day Years Used Date Smoking Tobacco: Never Assessed Sex and Gender Information Value Date Recorded Sex Assigned at Not on file 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
--- OUTSIDE RECORDS SUMMARY | 2025-01-15 13:40 | XMS_ITS | Encounter Summary ---
Author Organization 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
[2025-01-15 13:41] VITALS: BP 107/78; PULSE 74; RESP 18; O2SAT 99
--- NOTE | 2025-01-15 14:16 | W.ED.WOUNDLC ---
HPI - Wound/Laceration General: Chief Complaint: Wound/Laceration Stated Complaint: lac lt inner elbow Time Seen by Provider: 01/15/25 14:16 History of Present Illness: 29-year-old male presents emergency room with a cut in the antecubital fossa of the left arm. He was working on taking out some windows out of a building where the windows broke and a shard of glass caught him in the antecubital fossa initially there is a fair amount of bleeding here prior to direct pressure bandage and has good control of bleeding. He is unsure of his last tetanus shot. Nurses note reported laceration at 3 cm measured at the bedside is 5 cm Related Data Previous Rx's ?Medication ?Instructions ?Recorded fluoxetine 20 mg capsule (Prozac) 20 mg PO DAILY #30 caps 09/15/20 Allergies Allergy/AdvReac Type Severity Reaction Status Date / Time Penicillins Allergy Intermediate RASH Verified 09/15/20 08:39 hydromorphone (From Dilaudid) Allergy ALGY-Difficulty Verified 01/15/25 13:37 Breathing PFSH ED PFSH: Social History Smoking and tobacco/nicotine status: never used tobacco/nicotine Second hand smoke exposure: No Alcohol intake: never Substance/Drug Use: never Physical Exam Extremity: OTHER: 6 cm laceration of the antecubital fossa full-thickness no active bleeding. Neurovascularly left upper arm is intact no focal neurologic deficits noted no distal numbness or tingling radial and ulnar pulses normal Procedures Laceration Laceration 1: Site: upper extremity Side (If applicable): left (Antecubital fossa) Size (cm): 5 Description: linear Depth: simple, single layer Local Anesthetic: lidocaine 1% and with epi Amount of anesthesia used (mL): 4 Pre-repair: wound explored, irrigated extensively and deep structures intact Skin layer closed with: nylon Size (cm): 5-0 Number of sutures: 1 Technique: running (Running locking) Course Vital Signs: Vital signs: Vital Signs Pulse Rate 84 01/15/25 14:56 Respiratory Rate 18 01/15/25 13:41 Blood Pressure 117/71 01/15/25 14:56 Pulse Oximetry 98 01/15/25 14:56 Oxygen Delivery Me thod Room Air 01/15/25 13:41 MDM - Wound/Laceration Medical Decision Making Wound care instructions given sutures to removed in 10 days. Patient declined tetanus update No radiology studies performed this visit Discharge Plan Discharge Patient Disposition: Home Clinical Impression: Laceration Condition: Stable Prescriptions: No Action fluoxetine [Prozac] 20 mg capsule 20 mg PO DAILY Qty: 30 2RF Discharge Orders: Discharge ED (Routine); Ordered 01/15/25 Ordered By: Shabbir Riley Discharge Diet: Usual diet Discharge Activity: Resume usual activity Patient Instructions: Laceration (ED), Opioid Safety, Pain Management, Patient Portal & Karen Instructions Activity Restrictions/Additional Instructions: Thank you for choosing [facility] for your healthcare needs today. It is very important that you follow up as instructed or that you return to the Emergency Department should you have concerns or if your condition changes or worsens in any way. You were seen emergency room laceration. Sutures were placed. This should removed in approximately 10 days apply [id number] topical antibiotic ointment to the wound 1-2 times daily Print Language: Persian Coding Level of Care Code ED Senior Clinical Data Manager for Lynne Bolton
[2025-01-15 14:56] VITALS: BP 117/71; PULSE 84; O2SAT 98
== END 2025-01-15 14:58 | disposition home or self-care (01) ==
PROVIDERS: Emergency Provider Family Medicine
DX: S41.112A Laceration without foreign body of left upper arm, initial encounter (principal); W25.XXXA Contact with sharp glass, initial encounter
CPT/HCPCS: 12002; 99283